=== PATIENT | male | born 1990 | race Two or more races ===

== ENCOUNTER → 2017-07-05 | Outpatient (REF) | payer OTHER ==
[2017-07-05 13:58] LABS: NON PROGRESSIVE MOTILITY (c) 23 %; PROGRESSIVE MOTILITY (a) 40 % (>=32); TOTAL MOTILITY 63 % (>=40)
[2017-07-05 13:59] LABS: % NORMAL FORMS 9 % (>=4); IMMOTILITY 37 %; SPERM# 85.4 M/Ejac (>=39); TOTAL PROGRESSIVE SPERM 34.2 M/Ejac.
[2017-07-05 14:00] LABS: TOTAL FUNCTIONAL 7.1 M/Ejac.
== END ==
LOC: M LAB REF 13:15
PROVIDERS: ATTEND Physician Assistant
DX: Z31.41 Encounter for fertility testing (principal)

== ENCOUNTER → 2017-10-11 | Outpatient (REF) | payer OTHER | LOC: M SMT 14:50 | PROVIDERS: ATTEND Urology | DX: Z30.2 Encounter for sterilization (principal) ==

== ENCOUNTER → 2017-12-06 | Outpatient (REF) | payer OTHER ==
[2017-12-06 15:12] LABS: SEMEN APPEARANCE OPAQUE (OPAQUE)
[2017-12-06 15:13] LABS: IMMOTILE SPERM ABSENT (ABSENT); MOTILE SPERM ABSENT (ABSENT); SEMEN VISCOSITY LIQUID (LIQUID); WBC CONCENTRATION <=1 M/ml (<=1 M/ml)
[2017-12-06 15:14] LABS: IMMMOTILE SPERM CENTRIFUGED ABSENT (ABSENT); MOTILE SPERM CENTRIFUGED ABSENT (ABSENT)
== END ==
LOC: M SMT 14:55
DX: Z30.2 Encounter for sterilization (principal)